=== PATIENT | male | born 1955 | race Caucasian/White ===

== ENCOUNTER 2020-04-17 15:17 | Emergency (ER) | payer OTHER, MEDICARE, MEDICAID, SELFPAY ==
[2020-04-17 15:30] VITALS: BP 154/95; PULSE 85; RESP 15; TEMP 36.8; O2SAT 93
--- NOTE | 2020-04-17 16:53 | PC.NURSE ---
Pt wanted to know how much longer it was going to be before he saw the doctor. I stated that I was unsure about that because there are other pts to see and he not in life threatening danger. Pt states I take Vicadin every 4 hours and i haven't had one in 6hours, I need pain meds . I informed pt that I could not give him medications without a DrKeith seeing him. Pt then states that he has been in this room with silly cartoons and a small tv for 2 hours . Again I apologized to pt and informed him that would be in to see him as soon as he could. Pt asked what they were going to probably do to him, I stated that they would probably do an Xray. Pt then states that no , I can not get a Xray because i have stints in place and have a clot catcher in me. I am not doing Xrays, my Dr says no. Pt then states just get me a wheelchair and paperwork to sign, I am leaving. This Rn went and informed charged nurse Calli of what was going on and she stated that there was no paperwork to sign since had not seen pt. I went and asked pt again if he was sure he wanted to leave and he said get me the hell out of here . [facility] I wheeled pt out awaiting car and informed pt that if he states feeling any SOB, chest pain, weakness, dizziness or loss of bladder and bowel control he needed to come back to hospital. Pt states he will not come back here and to tell the to kiss his ass . I then helped pt into vehicle and wished him well.
== END 2020-04-17 16:53 | disposition left against medical advice (07) ==
DX: Z76.0 Encounter for issue of repeat prescription (principal)
CPT/HCPCS: 99199

== ENCOUNTER 2023-05-02 02:11 | Emergency (ER) | payer MEDICARE, MEDICAID, SELFPAY ==
[2023-05-02] VITALS (43 sets, daily range): BP systolic 103–154; BP diastolic 56–83; PULSE 82–117; RESP 14–28; TEMP 36.7; O2SAT 93–100
--- NOTE | ~2023-05-02 | XR_ITS ---
EXAMINATION: XR chest 2V DATE: 05/02/2023 10:51 INDICATION: Cough and shortness of breath TECHNIQUE: Frontal and lateral views of the chest are obtained COMPARISON: None available FINDINGS: There are small pleural effusions. Patchy opacities are present throughout all lung zones. There is no pneumothorax. The heart size is normal. There is exaggerated kyphosis of the thoracic spi ne. An inferior vena cava filter is noted. IMPRESSION: 1. Mild diffuse lung disease which could reflect pulmonary edema versus pneumonia versus atelectasis. 2. Small pleural effusions. Reviewed, dictated and finalized at location A. IMPRESSION: 1. Mild diffuse lung disease which could reflect pulmonary edema versus pneumon ia versus atelectasis. 2. Small pleural effusions.
--- NOTE | ~2023-05-02 | CT_ITS ---
EXAMINATION: CTA chest PE protocol DATE: 05/02/2023 12:17 INDICATION: Right chest pain, shortness of breath TECHNIQUE: Computed tomography angiography (CTA) of the chest was performed with 100 mL Omnipaque-350 intravenous contrast timed to evaluate the pulmonary arteries. Coronal maximum intensity projection 3D-reconstructions were created by the technologist. The dose-length product (DLP) was 204.05 mGy-cm. Automated exposure control and iterative reconstruction technique were employed. COMPARISON: None. FINDINGS: The pulmonary arteries are well-opacified. No pulmonary embolism is identified. There is se giovani emphysema. There is mucous plugging in the lower lobes. Calcified pleural plaques are noted whic h can be seen in the setting of prior asbestos exposure. There are small pleural effusions. Nodules o f the right upper lobe measure up to 6 mm. There is exaggerated kyphosis of the thoracic spine. Heale d right-sided rib fractures are noted. IMPRESSION: 1. No pulmonary embolus. 2. Right upper lobe nodules, likely infectious or inflammatory. Follow-up CT in 3-6 months is recomme nded. 3. Severe emphysema. 4. Mucous plugging in the lower lobes. Reviewed, dictated and finalized at location A. IMPRESSION: 1. No pulmonary embolus. 2. Right upper lobe nodules, likely infectious or inflammatory. Follow-up CT in 3-6 months is recommended. 3. Severe emphysema. 4. Mucous plugging in the lower lobes.
--- NOTE | 2023-05-02 02:51 | ED.SOB ---
HPI - SOB/Dyspnea General Chief Complaint: Shortness of Breath/Dyspnea Stated Complaint: SOB Time Seen by Provider: 05/02/23 02:13 History of Present Illness HPI Narrative: Patient with history of COPD, on home oxygen, presents with difficulty breathing, the power had gone out and he was unable to use his nebulizer machine or oxygen. Had recently been treated for pneumonia Related Data Allergies Allergy/AdvReac Type Severity Reaction Status Date / Time morphine Allergy Nausea Verified 04/17/20 15:37 Review of Systems Review of Systems: CONST: No fever. HEENT: No sore throat C/V: No chest pain RESP: Cough, difficulty breathing GI: No abdominal pain : No dysuria. M/S: No joint pain. SKIN: No rash. NEURO: [No headache or focal numbness or weakness] PSYCH: [No depression] PMFSH Social History Social History Gender identity (if verbalized by the patient): Male Exam Narrative: EXAMINATION OF ORGAN SYSTEMS/BODY AREAS: Constitutional: Vital signs per nursing GENERAL: Coughing HEAD: Normal with no signs of head trauma. EYES: EOMI, conjunctiva normal ENT: Hearing grossly intact LUNGS: Labored respirations, wheezing diffusely all lung pedroza HEART: [Regular rate and rhythm] ABD: [Soft], [nontender to palpation] EXT: Normal range of motion SKIN: [No rashes or lesions.] NEURO: [Alert and oriented x 3. No gross focal sensory or strength deficits.] PSYCH: Normal affect Course Vital Signs Vital signs: Vital Signs Temperature 98.0 F 05/02/23 02:14 Pulse Rate 104 H 05/02/23 02:14 Blood Pressure 137/80 05/02/23 02:14 Pulse Oximetry 96 05/02/23 02:14 Oxygen Delivery Nasal Cannula 05/02/23 02:14 Oxygen Flow Rate 6 05/02/23 02:14 Temperature 98.0 F 05/02/23 02:14 Pulse Rate 94 05/02/23 02:59 Respiratory Rate 15 05/02/23 02:59 Blood Pressure 137/80 05/02/23 02:14 Pulse Oximetry 96 05/02/23 02:14 Oxygen Delivery Nasal Cannula 05/02/23 02:14 Oxygen Flow Rate 6 05/02/23 02:14 MDM - SOB/Dyspnea MDM Narrative Medical decision making narrative: ED COURSE AND MEDICAL DECISION MAKINyoM with acute dyspnea and wheezing likely due to acute COPD exacerbation based on history and exam, probably from power going out and his AC and nebulizer not working. Patient is hemodynamically stable. Nebulizer treatments are started and steroids given orally. Patient monitored in the ED for a couple of hours and on reevaluation is feeling significantly better. No respiratory distress or accessory muscle use. Good air movement bilateral lungs. He feels comfortable going home at this time and thinks he can call for a ride. Prescriptions for [albuterol and steroid course] provided. Patient is given strict return precautions and patient is discharged in stable/improved condition. Discharge Plan Discharge Clinical Impression: Acute exacerbation of chronic obstructive airways disease Patient Disposition: Home, Self-Care Condition: Stable Instructions: Antibiotic Form, COPD (Chronic Obstructive Pulmonary Disease) (ED) Additional Instructions: Please follow up with your doctor; you can always return for any further issues. Prescriptions: New albuterol sulfate 90 mcg/actuation HFA aerosol inhaler 2 puff inhalation QID PRN (Reason: shortness of breath or wheezing) Qty: 8.5 0RF prednisone 20 mg tablet 40 mg PO DAILY 4 Days Qty: 8 0RF Follow-up/Referrals: [facility] [Primary Care Provider] -
[2023-05-02] MEDS: ALBUTEROL SULFATE NEB 2.5 MG/3 ML INH 15 MG INHALATION (02:59)
[2023-05-02] MEDS: IPRATROPIUM BR 0.02% INH SOLN 0.5 MG/2.5 ML VIAL 1 MG INHALATION (03:03)
[2023-05-02] MEDS: predniSONE 20 MG TABLET 40 MG PO (03:51)
--- NOTE | 2023-05-02 05:07 | PC.NURSE ---
0500 - Called [facility] to check on the status of the power outage where pt lives. [facility]ty has not made it to the part of the town where the pt lives. Pt is oxygen dependant and his oxygen concentrator is out of charge. Pt attempted to contact family but unable to reach at this time. Pt was informed of the continues power outage and will be in room 11 until family is reached or power returns for an ambulance transfer.
--- NOTE | 2023-05-02 07:13 | PC.NURSE ---
Patient report received from ANALISA Gaxiola. All questions answered and care of patient assumed.
--- NOTE | 2023-05-02 07:42 | PC.NURSE ---
Patient report given to ANALISA Vela. All questions answered and care of patient transferred. Awaiting confirmation that patient's power has been restored at his home as well as transport.
[2023-05-02 10:07] LABS: Basophils Percent Auto 0.3 % (0.2-1.2); Hematocrit 50.1 % (42.0-52.0); Hemoglobin 16.1 g/dL (14.0-18.0); Immature Granulocyte Absolute 0.02 K/mm3 (0.00-0.031); Immature Granulocyte Percent A 0.2 % (0-0.5); Lymphocytes Absolute Auto 0.33 K/mm3 (0.9-3.2); Lymphocytes Percent Auto 3.5 % (18.3-44.2); Mean Corpuscular HGB Conc 32.1 g/dl (32-36); Mean Corpuscular Hemoglobin 31.7 pg (26-34); Mean Corpuscular Volume 98.6 fl (80-100); Mean Platelet Volume 9.4 fl (7.4-10.4); Monocytes Absolute Auto 0.1 K/mm3 (0.1-0.6); Monocytes Percent Auto 0.8 % (2.6-8.5); Neutrophils Percent Auto 95.2 % (45.5-73.1); Platelet Count Result 211 k/mm3 (150-375); Red Blood Count 5.08 M/mm3 (4.6-6.20); Red Cell Distribution Width 13.6 % (11.5-14.5); White Blood Count 9.5 K/mm3 (4.5-10.0)
[2023-05-02 10:18] LABS: Partial Thromboplastin Time 30.5 SECONDS (22.3-36.8); Prothrombin Time 13.9 Seconds (11.1-14.7)
[2023-05-02 10:19] LABS: Alanine Aminotransferase 22 U/L (6-50); Albumin Level 4.5 g/dL (3.5-5.1); Alkaline Phosphatase 71 U/L (38-126); Anion Gap 7 mmol/L (8-16); Aspartate Amino Transferase 22 U/L (17-59); Bilirubin,Total 0.3 mg/dL (0.2-1.3); Blood Urea Nitrogen 13 mg/dL (9-20); Calcium 8.9 mg/dL (8.4-10.2); Carbon Dioxide 27 mmol/L (22-30); Chloride 104 mmol/L (98-107); Estimated CRCL calculation 119 ml/min; Estimated Glomerular Filt Rate > 60; Glucose 167 mg/dL (65-110); Lactic Acid Reflex 2.1 mmol/L (0.7-2.0); Potassium 4.5 mmol/L (3.4-5.0); Sodium 138 mmol/L (137-145)
[2023-05-02 10:20] LABS: Alveolar/Arterial O2 Gradient 110.7 mmHg; Base Excess ABG -0.1 mEq/l (+/-2.0); Fractional Inspired Oxygen 32 %; HCO3 ABG 25.6 mEq/l (22.0-26.0); Methemoglobin ABG 0.3 %THb (0-1.5); Oxygen Content ABG 21.3 %vol (16.0-22.0); Oxygen Saturation ABG 91.9 % (95.0-100.0); Oxyhemoglobin 90.5 % THb (90.0-100.0); PCO2 ABG 45.4 mmHg (35.0-45.0); PO2 ABG 64.3 mmHg (80.0-100.0); PO2 FiO2 Ratio Arterial Blood 2.01 %; Reduced Hemoglobin 6.2 %THb (0-5.0); Total Hemoglobin 16.8 g/dL (12.0-18.0); pH ABG 7.369 (7.350-7.450)
[2023-05-02 10:22] LABS: Device NASAL CANNULA; Modified Allen's Test Pass; Site Drawn LEFT RADIAL
[2023-05-02 10:27] LABS: NT Pro B Type Natriuretic Pept 57 pg/mL (19.9-100)
[2023-05-02 10:30] LABS: Platelet Estimate Adequate (Adequate)
[2023-05-02 10:31] LABS: Schistocytes None Seen (NORMAL)
[2023-05-02 10:43] LABS: Influenza A QL RT-PCR Negative (Negative); Influenza B QL RT-PCR Negative (Negative); SARS-CoV-2 RNA PCR Negative (Negative)
[2023-05-02 13:05] LABS: Reflex Lactic Acid Yes or No Add Lactic
[2023-05-02 13:36] LABS: Lactic Acid 2.3 mmol/L (0.7-2.0)
--- NOTE | 2023-05-02 13:47 | PC.NURSE ---
patient reports that his sister will come get him and take him home with a small oxygen tank from home. [employer] called and Khurram reports that he will meet patient at his home to get a 24 hr portable oxygen tank set up for him.
== END 2023-05-02 14:26 | disposition home or self-care (01) ==
PROVIDERS: General Practice; Emergency Provider Emergency Medicine
DX: J44.1 Chronic obstructive pulmonary disease with (acute) exacerbation (principal); Z99.81 Dependence on supplemental oxygen; Z87.01 Personal history of pneumonia (recurrent); Z20.822 Contact with and (suspected) exposure to COVID-19
CPT/HCPCS: 36415; 36600; 71046; 71275; 80053; 82375; 82805; 83050; 83605; 83880; 85025; 85610; 85730; 87636; 94640; 99284; J7512; Q9967